=== PATIENT | male | born 1980 | race Caucasian/White ===

== ENCOUNTER 2016-07-20 23:24 | Emergency (ER) | payer SELFPAY ==
[~2016-07-20] VITALS: Ht 177.8 cm; Wt 93.4 kg
[2016-07-20 23:37] VITALS: Ht 177.8 cm; Wt 93.4 kg
[2016-07-21] MEDS ORDERED: NO ROUTINE MEDS (00:32)
--- NOTE | 2016-07-21 00:32 | ERPDOC ---
Departure Disposition Decision Date: July 21, 2016 Disposition Decision Time: 00:52 Disposition: 01 DISCHARGED HOME, SELF-CARE Impression Impression Impression: Primary Impression: Pain, dental Condition: Stable Seen By: Mid-level only Patient Instructions: ED Dental Follow-up, Toothache (ED) Problems/Meds/Labs Reviewed?: Yes Medications reviewed and manag: Yes Additional Instructions: Take amoxicillin 500mg three times daily for 10 days. Take ibuprofen 800mg every 8 hours with food for pain. You may take norco 5/325mg, 1-2 tabs every 6 hours as needed for pain. Follow with your dentist for re-evaluation in the next 48 hours. Follow treatment plan. Follow up care ordered?: Yes Mental Status: Alert, Oriented Scripts Amoxicillin (Amoxicillin) 500 Mg Capsule 1 CAP PO TID for 10 Days, #30 CAP Prov: DENEEN LR APRN 07/21/16 Hydrocodone/Acetaminophen ([place] 5-325 Tablet) 5-325 Tablet 1-2 TAB PO Q6HPRN for PAIN, #10 TAB Prov: DENEEN LR APRN 07/21/16 HPI General Chief Complaint: Toothache Stated Complaint: TOOTH ACHE,FACE SWOLLEN Time Seen by Provider: 00:31 Source: patient HPI Dental Initial Comments 35 YO M presents to ED with 2 days history of upper right tooth pain. Patient says that he has an appointment with his dentist tomorrow but could not take the pain any longer. Took one [place] which was given to him by a friend 3 hours ago. Denies fever or chills. Pain Scale: Now: 7/10 Location: R upper Problem: other (tooth pain with carries) Associated Symptoms: gum swelling, DENIES: rhinorrhea, sinus pain Allergies: Coded Allergies: No Known Allergies (Unverified , 07/20/16) Past History Past Medical History Metabolic: DENIES: diabetes Cardiac: DENIES: angina Respiratory: DENIES: asthma Male: DENIES: renal insufficiency Neurological: DENIES: seizures Musculoskeletal: osteoarthritis Psychological: DENIES: depression Surgical History General: other (dental surgery) Family History Family PMH: FOUND: other (noncontributory) Social History Sexuality: female partner Review of Systems Constitutional Constitutional: DENIES: chills, dizziness, fever, weakness Eyes General: DENIES: erythema, exudate Lids/Accessories: DENIES: erythema, swelling ENMT Ears: DENIES: pain Hearing: DENIES: hearing loss Sinuses: DENIES: congestion, rhinorrhea Mouth/Throat: DENIES: sore throat Teeth: missing teeth, pain, see HPI Cardiovascular Cardiac: DENIES: chest pain, murmur Rhythm/Rate: DENIES: palpitations Pulmonary Respiratory: DENIES: cough, dyspnea GI Upper Abdomen: DENIES: nausea, pain, vomiting Lower Abdomen: DENIES: diarrhea, pain General: DENIES: pain Musculoskeletal General: DENIES: joint pain, pain, tenderness Integumentary Skin: DENIES: color change, itching, rash Neurological General: DENIES: ataxia, change in strength, numbness, paralysis/paresis, weakness Psychiatric Psychiatric: DENIES: anxiety, depression, nervousness Exam General General Nourishment: well nourished, well developed, adult [place] Dental Face: swelling (mild swelling proximal of superior right lip), NOT FOUND: asymmetry, bruising, erythema Jaw: NOT FOUND: asymmetry, trismus Lips: NOT FOUDN: laceration, numbness, swelling, weakness Gums: moist, pink, swelling (buccal side of gingiva of #6 and #7) Tongue: NOT FOUND: swelling Teeth: caries (#6and #7 decayed to gumline), missing (multiple) Pharynx: NOT FOUND: erythema, exudate, swelling, uvular deviation Neck: NOT FOUND: L anterior adenopathy, L posterior adenopathy, R anterior adenopathy, R posterior adenopathy Eyes (brief) Eyes Brief: found: EOMI ENMT (brief) ENMT: NOT FOUND: nasal exudate, nasal swelling Neck (brief) Neck Brief: FOUND: trachea midline, NOT FOUND: adenopathy Respiratory (brief) Respiratory Brief: FOUND: clear all buenrostro, equal bilaterally, symmetrical Cardiovascular (brief) Cardiac Brief: FOUND: regular rate, regular rhythm Musculoskeletal (brief) Musculoskeletal Brief: NOT FOUND: deformity, loss of motion Integumentary (brief) Integumentary Brief: FOUND: dry, pink, warm Neurologic (brief) Neurological Brief: FOUND: CN w/o gross def to obs, gait w/o gross def to obs, motor-no gross deficits, sensory-no gross deficits Neurologic RN Documented GCS Eye Opening: (4)Spontaneous Verbal: (5)Oriented Motor: (6)Obeys Commands Total: Psychiatric (brief) Psychiatric Brief: FOUND: alert, normal affect, oriented Differential Diagnoses Considering: Gingival Abscess, Caries, Gingivitis, Sinusitis, Tooth Avulsion/ Extrusion, Tooth Fracture Progress Results/Orders Medications Current ED Medications Amoxicillin (Amoxil) 500 mg O ONCE PO Last administered on 07/21/16 01:04; Start 07/21/16 at 01:00; Stop 07/21/16 at 01:01; Status DC Acetaminophen/ Hydrocodone Bitart (NORCO 5 (PrePack)) 1 pack O ONCE SENT HOME Last administered on 07/21/16 01:04; Start 07/21/16 at 01:00; Stop 07/21/16 at 01:01; Status DC Progress Progress I discussed treatment plan, follow up with dentist and return precautions. Patient sent home on amoxicillin with norco Rx. Patient verbalized understanding of dismissal instructions, follow up and return precautions. DENEEN LR APRN July 21, 2016 00:32
[2016-07-21] MEDS ORDERED: AMOX500C2 PO (00:56)
[2016-07-21] MEDS ORDERED: HYDR-4246 PO (00:56)
[2016-07-21] MEDS ORDERED: HYDROCODONE/APAP 5/325 (PrePack) SENT HOME ONE (01:00)
[2016-07-21] MEDS ORDERED: AMOXICILLIN 500 MG CAPSULE PO ONE (01:00)
--- NOTE | 2016-07-21 01:10 | NUR ---
INSTRUCTIONS DISMISSAL AND MEDICATION INSTRUCTIONS GIVEN TO PT DISPENSED NORCO PREPACK GIVEN AND RX GIVEN FOR SAME WITH INSTRUCTIONS PT GIVEN WORK NOTE PT VERBALIZED UNDERSTANDING OF ALL
[2016-07-21 01:12] VITALS: BP 145/83; PULSE 97; RESP 16; TEMP 98.4; O2SAT 99
--- NOTE | 2016-07-21 01:12 | NUR ---
DISMISS PT DISMISSED AMBULATORY WITH SPOUSE
== END 2016-07-21 01:12 | disposition home or self-care (01) ==
LOC: ED 23:24
DX: K08.89 Other specified disorders of teeth and supporting structures (principal)